=== PATIENT | male | born 1955 | race Caucasian/White ===

== ENCOUNTER → 2019-07-31 11:08 | Outpatient (BNVA) | payer MEDICARE, BC, SELFPAY | PROVIDERS: Family Provider Family Medicine; PCP Family Medicine; Visit Provider Family Medicine | DX: I10 Essential (primary) hypertension (principal); E55.9 Vitamin D deficiency, unspecified; L57.0 Actinic keratosis | CPT/HCPCS: 80053; 80061; 82044; 82306 ==

== ENCOUNTER → 2019-09-19 10:57 | Outpatient (BNVA) | payer MEDICARE, BC, SELFPAY | PROVIDERS: Family Provider Family Medicine; PCP Family Medicine; Visit Provider Family Medicine | DX: E78.5 Hyperlipidemia, unspecified (principal) | CPT/HCPCS: 80053 ==

== ENCOUNTER → 2019-10-24 10:50 | Outpatient (BNVA) | payer MEDICARE, BC, SELFPAY | PROVIDERS: Family Provider Family Medicine; PCP Family Medicine; Visit Provider Urology | DX: N40.1 Benign prostatic hyperplasia with lower urinary tract symptoms (principal); N40.0 Benign prostatic hyperplasia without lower urinary tract symptoms; R97.20 Elevated prostate specific antigen [PSA] | CPT/HCPCS: 81001; 84153 ==

== ENCOUNTER → 2019-11-14 09:12 | Outpatient (BNVA) | payer MEDICARE, BC, SELFPAY | PROVIDERS: Family Provider Family Medicine; PCP Family Medicine; Visit Provider Family Medicine | DX: E78.5 Hyperlipidemia, unspecified (principal) | CPT/HCPCS: 80061 ==

== ENCOUNTER → 2020-03-15 00:01 | Outpatient (BNVA) | payer MEDICARE, BC, SELFPAY | PROVIDERS: Family Provider Family Medicine; PCP Family Medicine; Visit Provider Nurse Practitioner Family | DX: Z20.828 Contact with and (suspected) exposure to other viral communicable diseases (principal); J06.9 Acute upper respiratory infection, unspecified | CPT/HCPCS: 87635 ==

== ENCOUNTER 2020-04-22 20:00 | Outpatient (CLI) | payer MEDICARE, BC, SELFPAY | END 2020-04-22 20:01 | disposition home or self-care (01) | LOC: SLEEP 04-23 09:23 | PROVIDERS: Family Provider Family Medicine; PCP Family Medicine; Visit Provider Family Medicine | DX: G47.10 Hypersomnia, unspecified (principal); G47.33 Obstructive sleep apnea (adult) (pediatric) | CPT/HCPCS: 95810 ==

== ENCOUNTER → 2020-04-29 09:13 | Outpatient (BNVA) | payer MEDICARE, BC, SELFPAY | PROVIDERS: Family Provider Family Medicine; PCP Family Medicine; Visit Provider Urology | DX: R97.20 Elevated prostate specific antigen [PSA] (principal); N40.1 Benign prostatic hyperplasia with lower urinary tract symptoms | CPT/HCPCS: 81003; 84153 ==

== ENCOUNTER 2020-05-22 20:00 | Outpatient (CLI) | payer MEDICARE, BC, SELFPAY | END 2020-05-22 20:01 | disposition home or self-care (01) | LOC: SLEEP 05-23 08:31 | PROVIDERS: Family Provider Family Medicine; PCP Family Medicine; Visit Provider Family Medicine | DX: G47.33 Obstructive sleep apnea (adult) (pediatric) (principal) | CPT/HCPCS: 95811 ==

== ENCOUNTER 2020-06-07 14:57 | Emergency (ER) | payer OTHER, BC, MEDICARE, SELFPAY ==
[2020-06-07 16:16] VITALS: BP 143/88; PULSE 88; RESP 18; TEMP 37.1; O2SAT 98; BMI 26.0
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
[2020-06-07 17:15] VITALS: BP 151/99; PULSE 84; RESP 16; O2SAT 98
[2020-06-07 17:58] VITALS: BP 136/102; PULSE 89; RESP 16; O2SAT 99
== END 2020-06-07 18:00 | disposition home or self-care (01) ==
PROVIDERS: Emergency Provider Physician Assistant; PCP Family Medicine
DX: S46.811A Strain of other muscles, fascia and tendons at shoulder and upper arm level, right arm, initial encounter (principal); S50.812A Abrasion of left forearm, initial encounter; V89.2XXA Person injured in unspecified motor-vehicle accident, traffic, initial encounter
CPT/HCPCS: 72040; 99282

== ENCOUNTER → 2020-07-31 09:48 | Outpatient (BNVA) | payer MEDICARE, BC, SELFPAY | PROVIDERS: PCP Family Medicine; Visit Provider Family Medicine | DX: I10 Essential (primary) hypertension (principal); E55.9 Vitamin D deficiency, unspecified; Z79.899 Other long term (current) drug therapy | CPT/HCPCS: 80053; 80061; 82043; 85025 ==

== ENCOUNTER → 2020-10-10 11:26 | Outpatient (BNVA) | payer MEDICARE, BC, SELFPAY | PROVIDERS: PCP Family Medicine; Visit Provider Family Medicine | DX: D70.9 Neutropenia, unspecified (principal) | CPT/HCPCS: 85025 ==

== ENCOUNTER → 2020-10-30 08:41 | Outpatient (BNVA) | payer MEDICARE, BC, SELFPAY | PROVIDERS: PCP Family Medicine; Visit Provider Urology | DX: R97.20 Elevated prostate specific antigen [PSA] (principal); N40.1 Benign prostatic hyperplasia with lower urinary tract symptoms | CPT/HCPCS: 81003; 84153 ==

== ENCOUNTER → 2021-06-16 14:57 | Outpatient (BNVA) | payer MEDICARE, BC, SELFPAY | PROVIDERS: PCP Family Medicine; Visit Provider Urology | DX: N40.1 Benign prostatic hyperplasia with lower urinary tract symptoms (principal); R97.20 Elevated prostate specific antigen [PSA] | CPT/HCPCS: 81003; 84153 ==

== ENCOUNTER → 2021-08-05 08:41 | Outpatient (BNVA) | payer MEDICARE, BC, SELFPAY | PROVIDERS: PCP Family Medicine; Visit Provider Family Medicine | DX: I10 Essential (primary) hypertension (principal); G47.33 Obstructive sleep apnea (adult) (pediatric) | CPT/HCPCS: 80053; 80061; 82043; 85025 ==

== ENCOUNTER → 2021-10-09 11:32 | Outpatient (BNVA) | payer MEDICARE, BC, SELFPAY | PROVIDERS: PCP Family Medicine; Visit Provider Family Medicine | DX: D72.819 Decreased white blood cell count, unspecified (principal) | CPT/HCPCS: 85025 ==

== ENCOUNTER 2021-10-24 06:00 | Outpatient (RCR) | payer MEDICARE, BC, SELFPAY | END 2021-10-29 23:59 | disposition home or self-care (01) | LOC: SPT 06:00 | PROVIDERS: PCP Family Medicine; Visit Provider Family Medicine | DX: M77.8 Other enthesopathies, not elsewhere classified (principal) | CPT/HCPCS: 97110; 97161 ==

== ENCOUNTER 2021-10-30 06:00 | Outpatient (RCR) | payer MEDICARE, BC, SELFPAY | END 2021-11-21 23:59 | disposition home or self-care (01) | LOC: SPT 06:00 | PROVIDERS: PCP Family Medicine; Visit Provider Family Medicine | DX: M77.8 Other enthesopathies, not elsewhere classified (principal) | CPT/HCPCS: 97110 ==

== ENCOUNTER 2021-12-30 09:16 | Outpatient (CLI) | payer MEDICARE, BC, SELFPAY | END 2021-12-30 09:17 | disposition home or self-care (01) | LOC: LAB 09:19 | PROVIDERS: PCP Family Medicine; Visit Provider Urology | DX: R97.20 Elevated prostate specific antigen [PSA] (principal); N40.1 Benign prostatic hyperplasia with lower urinary tract symptoms; M77.8 Other enthesopathies, not elsewhere classified | CPT/HCPCS: 36415; 51798; 84153; 99213 ==

== ENCOUNTER 2022-06-23 09:39 | Outpatient (CLI) | payer MEDICARE, BC, SELFPAY ==
[2022-06-23 10:36] LABS: Prostate Specific AG Urology 8.45 ng/mL (0-4)
== END 2022-06-23 09:40 | disposition home or self-care (01) ==
LOC: LAB 09:43
PROVIDERS: PCP Family Medicine; Visit Provider Urology
DX: R97.20 Elevated prostate specific antigen [PSA] (principal)
CPT/HCPCS: 36415; 84153

== ENCOUNTER → 2022-06-30 09:18 | Outpatient (BNVA) | payer MEDICARE, BC, SELFPAY | PROVIDERS: PCP Family Medicine; Visit Provider Urology | DX: N40.1 Benign prostatic hyperplasia with lower urinary tract symptoms (principal); N13.8 Other obstructive and reflux uropathy | CPT/HCPCS: 51798; 81003; 99213 ==

== ENCOUNTER → 2022-08-14 08:57 | Outpatient (BNVA) | payer MEDICARE, BC, SELFPAY | PROVIDERS: PCP Family Medicine; Visit Provider Family Medicine | DX: I10 Essential (primary) hypertension (principal); Z79.899 Other long term (current) drug therapy | CPT/HCPCS: 80053; 80061; 82043; 85025 ==

== ENCOUNTER → 2022-12-03 14:25 | Outpatient (BNVA) | payer MEDICARE, BC, SELFPAY | PROVIDERS: PCP Family Medicine; Visit Provider Dermatology | DX: L82.1 Other seborrheic keratosis (principal); L81.4 Other melanin hyperpigmentation; D18.01 Hemangioma of skin and subcutaneous tissue; L02.821 Furuncle of head [any part, except face]; S80.862A Insect bite (nonvenomous), left lower leg, initial encounter; Z85.828 Personal history of other malignant neoplasm of skin; W57.XXXA Bitten or stung by nonvenomous insect and other nonvenomous arthropods, initial encounter; Y93.9 Activity, unspecified; Y92.9 Unspecified place or not applicable; Y99.9 Unspecified external cause status | CPT/HCPCS: 99213 ==

== ENCOUNTER → 2023-02-12 09:12 | Outpatient (BNVA) | payer MEDICARE, BC, SELFPAY | PROVIDERS: PCP Family Medicine; Visit Provider Family Medicine | DX: I10 Essential (primary) hypertension (principal); Z13.6 Encounter for screening for cardiovascular disorders | CPT/HCPCS: 80053 ==

== ENCOUNTER 2023-08-10 11:06 | Outpatient (CLI) | payer MEDICARE, BC, SELFPAY | END 2023-08-10 11:07 | disposition home or self-care (01) | LOC: LAB 11:10 | PROVIDERS: PCP Family Medicine; Visit Provider Urology | DX: R97.20 Elevated prostate specific antigen [PSA] (principal) | CPT/HCPCS: 36415; 84153 ==

== ENCOUNTER → 2023-08-13 08:20 | Outpatient (BNVA) | payer MEDICARE, BC, SELFPAY | PROVIDERS: PCP Family Medicine; Visit Provider Family Medicine | DX: I10 Essential (primary) hypertension (principal); Z13.6 Encounter for screening for cardiovascular disorders; Z86.010 Personal history of colon polyps; R97.20 Elevated prostate specific antigen [PSA]; Z79.899 Other long term (current) drug therapy | CPT/HCPCS: 80053; 80061; 85025 ==

== ENCOUNTER → 2023-12-06 13:39 | Outpatient (BNVA) | payer MEDICARE, BC, SELFPAY | PROVIDERS: PCP Family Medicine; Visit Provider Nurse Practitioner Family | DX: L57.0 Actinic keratosis (principal); L91.8 Other hypertrophic disorders of the skin; D18.01 Hemangioma of skin and subcutaneous tissue; L81.4 Other melanin hyperpigmentation; L57.8 Other skin changes due to chronic exposure to nonionizing radiation; Z85.828 Personal history of other malignant neoplasm of skin | CPT/HCPCS: 17000; 99213 ==

== ENCOUNTER 2024-02-16 20:00 | Outpatient (CLI) | payer MEDICARE, BC, SELFPAY | END 2024-02-16 20:01 | disposition home or self-care (01) | LOC: SLEEP 23:16 | PROVIDERS: PCP Family Medicine; Visit Provider Family Medicine | DX: G47.33 Obstructive sleep apnea (adult) (pediatric) (principal); G47.00 Insomnia, unspecified; Z99.89 Dependence on other enabling machines and devices | CPT/HCPCS: 95811 ==

== ENCOUNTER 2024-05-15 08:09 | Outpatient (CLI) | payer MEDICARE, BC, SELFPAY ==
[2024-05-15 09:41] LABS: Prostate Specific Antigen Scr 8.47 ng/mL (0-4)
== END 2024-05-15 08:10 | disposition home or self-care (01) ==
LOC: LAB 08:11
PROVIDERS: PCP Family Medicine; Visit Provider Urology
DX: R97.20 Elevated prostate specific antigen [PSA] (principal)
CPT/HCPCS: 36415; G0103

== ENCOUNTER → 2024-08-01 08:49 | Outpatient (BNVA) | payer MEDICARE, BC, SELFPAY | PROVIDERS: PCP Family Medicine; Visit Provider Family Medicine | DX: I10 Essential (primary) hypertension (principal) | CPT/HCPCS: 80053; 80061; 85025 ==

== ENCOUNTER 2024-11-27 10:49 | Outpatient (CLI) | payer MEDICARE, BC, SELFPAY ==
[2024-11-27 11:56] LABS: Prostate Specific Antigen 8.410 ng/mL (0-4)
== END 2024-11-27 10:50 | disposition home or self-care (01) ==
LOC: LAB 10:53
PROVIDERS: PCP Family Medicine; Visit Provider Urology
DX: N40.1 Benign prostatic hyperplasia with lower urinary tract symptoms (principal)
CPT/HCPCS: 36415; 84153

== ENCOUNTER → 2024-12-05 10:15 | Outpatient (BNVA) | payer MEDICARE, BC, SELFPAY | PROVIDERS: PCP Family Medicine; Visit Provider Nurse Practitioner Family | DX: F42.4 Excoriation (skin-picking) disorder (principal); L82.1 Other seborrheic keratosis; D18.01 Hemangioma of skin and subcutaneous tissue; L57.8 Other skin changes due to chronic exposure to nonionizing radiation; Z08 Encounter for follow-up examination after completed treatment for malignant neoplasm; Z85.828 Personal history of other malignant neoplasm of skin; L57.0 Actinic keratosis | CPT/HCPCS: 17000; 99213 ==